=== PATIENT | male | born 2000 | race Caucasian/White ===

== ENCOUNTER 2023-08-05 09:59 | Emergency (ER) | payer OTHER ==
[~2023-08-05] VITALS: Ht 177.8 cm; Wt 84.1 kg
[2023-08-05 10:05] VITALS: BP 149/78; TEMP 98.2
[2023-08-05 11:30] VITALS: PULSE 87
== END 2023-08-05 11:30 | disposition home or self-care (01) ==
LOC: COL.ER 09:59
DX: S93.402A Sprain of unspecified ligament of left ankle, initial encounter (principal); X50.1XXA Overexertion from prolonged static or awkward postures, initial encounter; W10.9XXA Fall (on) (from) unspecified stairs and steps, initial encounter